=== PATIENT | male | born 1980 | race African-American/Black ===

== ENCOUNTER 2022-08-16 22:32 | Emergency (ER) | payer OTHER ==
[2022-08-16 23:20] VITALS: BP 155/84
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
== END 2022-08-17 00:45 | disposition home or self-care (01) ==
LOC: ED 22:32
DX: R51.9 Headache, unspecified (principal); V47.0XXA Car driver injured in collision with fixed or stationary object in nontraffic accident, initial encounter
CPT/HCPCS: 99282; 99283